=== PATIENT | female | born 1960 | race Caucasian/White ===

== ENCOUNTER 2017-08-29 10:27 | Emergency (ER) | payer MEDICARE, OTHER ==
[2017-08-29] MEDS ORDERED: MORPHINE SULFATE 4 MG/ML SYRG IV ONE (10:58)
[2017-08-29] MEDS ORDERED: ONDANSETRON HCL/PF 2 MG/ML VIAL IV ONE (10:58)
[2017-08-29] MEDS ORDERED: MORPHINE SULFATE 4 MG/ML SYRG ONE (11:00)
[2017-08-29] MEDS ORDERED: ONDANSETRON HCL/PF 2 MG/ML VIAL ONE (11:00)
--- NOTE | 2017-08-29 11:06 | ERNOTE ---
Upper Extremity HPI - General Extremities Pain Location: collar-bone area: left Time Seen by Provider: 08/29/17 10:55 Source: patient Exam Limitations: no limitations - Immun/Allergies/Home Medications Immunizations: IMMUNIZATION HX Immunizations Up to Date Yes History of Influenza Vaccine No Hx Pneumococcal Vaccination No Allergies/Adverse Reactions: Allergies Allergy/AdvReac Type Severity Reaction Status Date / Time Sulfa (Sulfonamide Allergy Verified 08/29/17 10:42 Antibiotics) oxycodone [From OxyContin] AdvReac Verified 08/29/17 10:42 Home Medications: HOME MEDICATIONS Escitalopram Oxalate [Lexapro] 10 mg PO DAILY 03/06/13 [Last Taken Unknown] Metoclopramide HCl [Reglan] 10 mg PO BID 03/06/13 [Last Taken Unknown] Nadolol BID 08/27/13 [Last Taken Unknown] Albuterol Sulfate [Ventolin HFA] 1 puff PO PRN PRN 08/29/17 [Last Taken Unknown] Fluticasone Propionate [Flovent Hfa] 12 gm IH DAILY 08/29/17 [Last Taken Unknown ] HYDROcodone/ACETAMINOPHEN [Aylett 5-325] 1 each PO Q4H #12 tablet 08/29/17 [Last Taken Unknown] - History of Present Illness Narrative: Patient was seen here last week for a fractured left clavicle and she was sent home with Tylenol with Codeine. She states that not only requested Tylenol with Codeine not working but that it makes her nauseated and she itches. Patient is here to see if we can help her with Aylett as that has worked in the past for pain. Occurred: last week Location of Incident: home Severity: moderate Method of Injury: Reports: fell Reason for Fall: Reports: tripped Loss of Consciousness: Reports: no loss of consciousness Modifying Factors - (Improves): Reports: pain medication - her pain medication is not working Other Injuries: Reports: none Prior Treament: Reports: recently seen Review of Systems - Review of Systems Constitutional: Present: See HPI EYE: Present: no symptoms reported ENT: Present: no symptoms reported Respiratory: Present: no symptoms reported Cardiology: Present: no symptoms reported Gastrointestinal/Abdominal: Present: no symptoms reported Genitourinary: Present: no symptoms reported Musculoskeletal: Present: See HPI Skin: Present: no symptoms reported Neurological: Present: no symptoms reported Endocrine: Present: no symptoms reported Hematologic/Lymphatic: Present: no symptoms reported Psych: Present: no symptoms reported - Patient's Past Medical History Patient History - Medical: Anxiety, Chronic Pain, Diabetes Type 2, Depression, Liver Disease, Osteoarthritis, Other - recently fractured left clavicle Patient History - Cardiac/Respiratory: COPD Patient History - Cancer: No Hx of Cancer Patient History - Surgical Procedures: Cholecystectomy, Tubal Ligation, Other Patient History - Other: None - Social History Living Situations: other Abuse History: No History of abuse Psych History: Hx of Anxiety, Hx of Depression Smoking Status: Current every day smoker Have you smoked in the past 12 months: Yes Do you dip or chew tobacco: No Alcohol Use: occasionally Drug Use: none - Immunizations Immunizations Up to Date: Yes Hx Pneumococcal Vaccination: No History of Influenza Vaccine: No Physical Exam - Physical Exam General Appearance: Present: wd/wn, alert, moderate distress Head Exam: Present: normal inspection Eye Exam: Normal inspection: bilateral, PERRL: bilateral Ears, Nose, Throat: Present: normal ENT inspection, H, normal pharynx Neck: Present: normal inspection, nontender Respiratory: Present: no respiratory distress, normal breath sounds, no accessory muscle use, chest nontender, lungs clear Cardiovascular/Chest: Present: regular rate, rhythm, no murmur, normal peripheral pulses Gastrointestinal/Abdominal: Present: normal bowel sounds, nontender, nondistended, soft, no organomegaly Rectal Exam: Present: deferred Back Exam: Present: normal inspection, normal range of motion Extremity Exam: Present: no edema, decreased range of motion, other - patient still has residual bruising around the fracture left clavicle, as well as tenderness to palpation. Neurological Exam: Present: alert, oriented, normal mood/affect Skin Exam: Present: normal color, warm/dry Lymphatic Exam: Present: no adenopathy ED Progress - Vital Signs Patient's Vital Signs:: I have reviewed the patient's vital signs. Vital Signs: Vital Signs 08/29/17 10:30 Temperature 36.9 C Pulse Rate 51 L Respiratory 13 Rate Blood Pressure 150/67 O2 Sat by Pulse 97 Oximetry - Progress/Reassessment Chief Complaint: Shoulder Injury/Pain Plan - Plan Plan: Patient will be given 4 morphine and 4 Zofran here in the emergency department and will be given a brief course of Aylett, however she has an orthopedic appointment this afternoon and all further pain management will be undertaken by the orthopedist. Departure Clinical Impression: Fx clavicle shaft-closed Qualifiers: Encounter type: subsequent encounter Fracture alignment: nondisplaced Laterality: left Fracture healing: with routine healing Qualified Code(s): S42.025D - Nondisplaced fracture of shaft of left clavicle, subsequent encounter for fracture with routine healing - Departure Disposition: Home self-care Condition: Good Instructions: Clavicle Fracture, [id number] Referrals: Veronica Caldera PA [Primary Care Provider] - Prescriptions: HYDROcodone/ACETAMINOPHEN [Aylett 5-325] 1 each PO Q4H #12 tablet
[2017-08-29 11:08] VITALS: BP 132/63
== END 2017-08-29 11:27 | disposition home or self-care (01) ==
LOC: ER 10:27
DX: S42.025D Nondisplaced fracture of shaft of left clavicle, subsequent encounter for fracture with routine healing (principal); J44.9 Chronic obstructive pulmonary disease, unspecified; F17.200 Nicotine dependence, unspecified, uncomplicated
CPT/HCPCS: 96374; 96375; 99284; J2405